=== PATIENT | female | born 1985 | race Caucasian/White ===

== ENCOUNTER 2019-03-21 22:46 | Emergency (ER) | payer MEDICAID, OTHER ==
[2019-03-21] MEDS ORDERED: Pantoprazole 40 MG Tab.CR PO ONE (22:47)
[2019-03-21] MEDS ORDERED: Ondansetron 4 MG Tab.DIS PO ONE (22:47)
[2019-03-21] MEDS ORDERED: Sodium Chloride 0.9% 1,000 ML IV ONE (23:03)
[2019-03-21] MEDS ORDERED: Thiamine 100 MG in Sodium Chloride 0.9% 100 ML IV ONE (23:04)
[2019-03-21] MEDS ORDERED: Ondansetron 8 MG in Sodium Chloride 0.9% 50 ML IV ONE (23:05)
[2019-03-21] MEDS ORDERED: Ondansetron 4 MG/2 ML SDV IVPUSH ONE (23:09)
--- NOTE | 2019-03-21 23:26 | EDM.PDOC ---
ED HPI GENERAL MEDICAL PROBLEM - General Chief Complaint: General Stated Complaint: vomiting Time Seen by Provider: 03/21/19 22:50 Source of Information: Reports: Patient History Limitations: Reports: No Limitations - History of Present Illness INITIAL COMMENTS - FREE TEXT/NARRATIVE: in with c/o epigastric abd pain with NV, she advises that she has been drinking alcohol and has vomited multiple times. The patient advises that she has been forcefully vomiting and also with the last couple of vomiting since noticed some blood streaks. Denies any black or tarry stools denies any bloody stools. Denies any ear, nose, throat symptoms denies any chest pain or shortness of breath. Onset: Gradual Duration: Day(s): Location: Reports: Abdomen Quality: Reports: Ache (Cramping) Severity: Moderate Improves with: Reports: None Worsens with: Reports: None Associated Symptoms: Reports: Nausea/Vomiting. 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: Musculoskeletal History: Reports: None Neurological History: Reports: Migraines Psychiatric History: Reports: Anxiety, Depression, Panic Attack, PTSD, Suicide Attempt, Suicidal Ideation Endocrine/Metabolic History: Reports: None Hematologic History: Reports: None Immunologic History: Reports: None Oncologic (Cancer) History: Reports: None Dermatologic History: Reports: None - Infectious Disease History Infectious Disease History: Reports: None - Past Surgical History HEENT Surgical History: Reports: Tonsillectomy, Other (See Below) Other HEENT Surgeries/Procedures: throat abscess Cardiovascular Surgical History: Reports: None Respiratory Surgical History: Reports: None GI Surgical History: Reports: None Female Surgical History: Reports: None Neurological Surgical History: Reports: None Musculoskeletal Surgical History: Reports: None Social & Family History - Family History Family Medical History: Noncontributory - Caffeine Use Caffeine Use: Reports: Soda - Living Situation & Occupation Living situation: Reports: with Family Occupation: Employed ED ROS GENERAL - Review of Systems Review Of Systems: See Below Constitutional: Reports: No Symptoms, Decreased Appetite. Denies: Fever, Chills HEENT: Reports: No Symptoms Respiratory: Reports: No Symptoms. Denies: Shortness of Breath Cardiovascular: Reports: No Symptoms. Denies: Chest Pain GI/Abdominal: Reports: Abdominal Pain, Nausea, Vomiting. Denies: Black Stool, Bloody Stool Musculoskeletal: Reports: No Symptoms. Denies: Neck Pain, Back Pain Skin: Reports: No Symptoms. Denies: Bruising, Rash, Erythema Neurological: Reports: No Symptoms. Denies: Confusion, Dizziness, Headache Psychiatric: Reports: No Symptoms ED EXAM, GENERAL - Physical Exam Exam: See Below Exam Limited By: No Limitations General Appearance: Alert, WD/WN, No Apparent Distress Ears: Normal External Exam Nose: Normal Inspection, Normal Mucosa Throat/Mouth: Normal Inspection, Normal Lips, Normal Voice, No Airway Compromise Head: Atraumatic, Normocephalic Neck: Normal Inspection, Supple, Non-Tender, Full Range of Motion Respiratory/Chest: No Respiratory Distress, Lungs Clear, Normal Breath Sounds, Chest Non-Tender Cardiovascular: Normal Peripheral Pulses, Regular Rate, Rhythm, No Murmur Peripheral Pulses: 2+: Radial (L) GI/Abdominal: Soft, Tender (epigastric tenderness). No: Non-Tender Back Exam: Normal Inspection, Full Range of Motion Extremities: Normal Inspection, Normal Range of Motion, Non-Tender, Normal Capillary Refill Neurological: Alert, Oriented, Normal Cognition, Normal Gait, No Motor/Sensory Deficits Psychiatric: Normal Affect, Normal Mood Skin Exam: Warm, Dry, Intact, Normal Color Course - Vital Signs Text/Narrative:: The patient was evaluated in the emergency department, I suspect that the patient has an alcoholic gastritis. The patient has been given Zofran 4 mg IV push, thiamine 100 mg IV push, as well as Protonix 40 mg IV push. The patient is also been given normal saline 1 L bolus. I suspect that the blood streaks the patient was having is from broken capillaries in the back of her esophagus/ throat area secondary to the forceful vomiting. The patient's H&H is stable. The overall general chemistries are normal. Lipase is normal. The patient's blood is extremely lipemic and the LFTs are having to be diluted. I did discuss this with the patient and advised that she will need follow-up at this with her family doctor and probably be placed on cholesterol medications as well as advised her of dietary changes that would need to occur to help with this as well. Also advised the patient that she needs to stop drinking alcohol. The patient again is doing much better, she will be subsequently discharged home she will be given Zofran 4 mg every 6 hours as needed as well as she will be advised to have Protonix 40 mg once a day for 14 days. The patient again is to see her family doctor which she already has an appointment to see her family doctor along with having a colonoscopy this coming week secondary to possible irritable bowel syndrome and she should advise her physician of her visit to the emergency department and all that we have discussed tonight including possible high cholesterol as well as elevated liver function test and she agrees to do that. Last Recorded V/S: Last Vital Signs Temp 36.1 C 03/21/19 22:48 Pulse 99 03/21/19 22:48 Resp 16 03/21/19 22:48 BP 145/102 H 03/21/19 22:48 Pulse Ox 97 03/21/19 22:48 - Orders/Labs/Meds Labs: Laboratory Tests 03/21/19 03/21/19 Range/Units 23:15 23:15 WBC 3.8 L (5.0-10.0) 10^3/uL RBC 4.05 (4.00-5.50) 10^6/uL Hgb 14.8 (12.0-16.0) g/dL Hct 39.2 (37.0-47.0) % MCV 96.8 H (82.0-94.0) fL MCH 36.5 H (27.0-32.0) pg MCHC 37.8 (33.0-38.0) g/dL RDW Coeff of Danny 12.9 (11.0-15.0) % Plt Count 164 (150-400) 10^3/uL Neut % (Auto) 39.3 (35-85) % Lymph % (Auto) 36.9 (10-55) % [facility] % (Auto) 15.7 (0-16) % Eos % (Auto) 6.5 H (0-5) % Baso % (Auto) 1.6 (0-3) % Neut # (Auto) 1.50 L (1.80-7.00) 10^3/uL Lymph # (Auto) 1.41 (1.00-4.80) 10^3/uL [facility] # (Auto) 0.60 (0.00-0.80) 10^3/uL Eos # (Auto) 0.25 (0.00-0.45) 10^3/uL Baso # (Auto) 0.06 10^3/uL Sodium 138 (136-145) mEq/L Potassium 3.6 (3.5-5.0) mEq/L Chloride 102 (98-106) mEq/L Carbon Dioxide 17 L (21-32) mmol/L BUN 10 (7-18) mg/dL Creatinine 0.7 (0.6-1.0) mg/dL Est Cr Clr Drug Dosing 92.10 mL/min Estimated GFR (MDRD) > 60 (>=60) mL/min Glucose 145 H (75-99) mg/dL Calcium 7.1 L (8.4-10.1) mg/dL Total Bilirubin 0.9 (0.0-1.0) mg/dL AST 392 H* (15-37) U/L ALT 152 H (12-78) U/L Alkaline Phosphatase 108 (46-116) U/L Total Protein 5.7 L (6.4-8.2) g/dL Albumin 3.2 L (3.4-5.0) g/dL Lipase 275 (73-393) U/L Ethyl Alcohol 222 H (0-3) mg/dL Meds: Medications Discontinued Medications Generic Name Dose Route Start Last Admin Trade Name Freq PRN Reason Stop Dose Admin Acetaminophen 650 mg 03/22/19 00:07 03/22/19 00:13 Tylenol PO 03/22/19 00:08 650 mg NOW ONE Administration Ondansetron HCl 8 mg/ Sodium 54 mls @ 100 mls/hr 03/21/19 23:05 Chloride IV 03/21/19 23:37 ONETIME ONE Sodium Chloride 1,000 mls @ 999 mls/hr 03/21/19 23:03 03/21/19 23:14 Normal Saline IV 03/22/19 00:03 999 mls/hr .BOLUS ONE Administration Thiamine HCl 100 mg/ Sodium 101 mls @ 202 mls/hr 03/21/19 23:04 03/21/19 23: 19 Chloride IV 03/21/19 23:05 202 mls/hr ONETIME ONE Administration Ondansetron HCl 4 mg 03/21/19 23:09 03/21/19 23:12 Zofran IVPUSH 03/21/19 23:10 4 mg ONETIME ONE Administration Ondansetron HCl 2 packet 03/22/19 00:05 Take Home: Ondansetron Odt 4 Mg, 2 Tab Pack PO 03/22/19 00:06 ONETIME ONE Pantoprazole Sodium 40 mg 03/21/19 23:30 03/21/19 23:40 Protonix Iv IVPUSH 03/21/19 23:31 40 mg ONETIME ONE Administration Pantoprazole Sodium 2 packet 03/22/19 00:06 Take Home: Pantoprazole 40 Mg, 1 Tab Pack PO 03/22/19 00:07 ONETIME ONE Departure - Departure Time of Disposition: 00:20 Disposition: Home, Self-Care 01 Condition: Good Clinical Impression: Elevated LFTs Alcoholic gastritis Qualifiers: Chronicity: unspecified - Discharge Information *PRESCRIPTION DRUG MONITORING PROGRAM REVIEWED*: Not Applicable *COPY OF PRESCRIPTION DRUG MONITORING REPORT IN PATIENT DIVYA: Not Applicable Prescriptions: Pantoprazole Sodium [Protonix] 40 mg PO DAILY 14 Days #14 tablet.dr Instructions: Gastritis, Adult, [id number] Forms: ED Department Discharge Additional Instructions: Stop drinking alcohol Protonix 40 mg once a day No spicy or greasy foods Eat a bland diet until feeling better, no milk or milk products until well Follow-up with your family doctor for further evaluation and treatment including evaluation of your cholesterol and elevated liver function test as discussed in the emergency department Return to emergency department sooner if worse or any problems - Problem List & Annotations (1) Alcoholic gastritis SNOMED Code(s): 5930288 Code(s): K29.20 - ALCOHOLIC GASTRITIS WITHOUT BLEEDING Status: Acute Priority: Medium Qualifiers: Chronicity: unspecified (2) Elevated LFTs SNOMED Code(s): 101135313, 701770295 Code(s): R94.5 - ABNORMAL RESULTS OF LIVER FUNCTION STUDIES Status: Acute Priority: Medium - Problem List Review Problem List Initiated/Reviewed/Updated: Yes - Assessment/Plan Plan: As above
[2019-03-21] MEDS ORDERED: Pantoprazole 40 MG Vial IVPUSH ONE (23:30)
[2019-03-21 23:31] LABS: CHLORIDE,CL 102 mEq/L (98-106); SODIUM,NA 138 mEq/L (136-145)
[2019-03-22] MEDS ORDERED: Take Home: Ondansetron 4 MG Tab.DIS, 2 Tab Pack PO ONE (00:05)
[2019-03-22] MEDS ORDERED: Take Home: Pantoprazole 40 MG Tab.CR, 1 Tab Pack PO ONE (00:06)
[2019-03-22] MEDS ORDERED: Acetaminophen 325 MG Tab PO ONE (00:07)
== END 2019-03-22 00:54 | disposition home or self-care (01) ==
LOC: CC.ED 22:46
DX: K29.20 Alcoholic gastritis without bleeding (principal); R79.89 Other specified abnormal findings of blood chemistry; J45.909 Unspecified asthma, uncomplicated; F41.9 Anxiety disorder, unspecified; F32.9 Major depressive disorder, single episode, unspecified; Z79.899 Other long term (current) drug therapy; Z91.012 Allergy to eggs
CPT/HCPCS: 36415; 80053; 83690; 85025; 96365; 96375; 99284-25; A9270-GY; C9113; G0480; J2405; J3411; J7030; J7050

== ENCOUNTER 2019-10-26 04:02 | Emergency (ER) | payer MEDICAID ==
--- NOTE | 2019-10-26 04:38 | EDM.PDOC ---
ED HPI GENERAL MEDICAL PROBLEM - General Chief Complaint: Gastrointestinal Problem Stated Complaint: "Bleeding from rectum" Time Seen by Provider: 10/26/19 04:15 Source of Information: Reports: Patient History Limitations: Reports: No Limitations - History of Present Illness INITIAL COMMENTS - FREE TEXT/NARRATIVE: Patient to the emergency department where she advises that she woke up this morning to have a normal bowel movement and when she wiped she noticed bright red blood. The patient complains of rectal pain. The patient denies any abdominal pain she has no nausea no vomiting she has had no fever chills, denies any other symptoms. Onset: Today, Sudden Duration: Minutes: Location: Reports: Other (Rectal pain) Quality: Reports: Pressure Severity: Mild Improves with: Reports: None Worsens with: Reports: None Associated Symptoms: Reports: No Other Symptoms. 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) (none) - Related Data Allergies Allergy/AdvReac Type Severity Reaction Status Date / Time eggs Allergy Airway Uncoded 10/26/19 04:18 Tightness Home Meds: Home Meds Escitalopram Oxalate [Lexapro] 20 mg PO DAILY 12/17/18 [History] hydrOXYzine HCL [Hydroxyzine HCl] 25 mg PO DAILY PRN 12/17/18 [History] Acetaminophen [Tylenol Extra Strength] 1,000 mg PO Q6HR PRN 03/21/19 [History] Brexpiprazole [Rexulti] 1 mg PO BEDTIME 03/27/19 [History] Lisinopril/Hydrochlorothiazide [Lisinopril-HCTZ 10-12.5 MG] 10 - 12.5 mg PO DAILY 04/12/19 [History] Hydrocortisone Acetate [Anusol-Hc] 25 mg RC Q12HR 2 Days #1 box 10/26/19 [Rx] Past Medical History HEENT History: Reports: None Cardiovascular History: Reports: Hypertension Respiratory History: Reports: Asthma Gastrointestinal History: Reports: None Other Gastrointestinal History: LACTOSE INTOLERANCE -denied 04/12/19 Genitourinary History: Reports: None 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 HX OF MASTITIS. HX OF VAGINITIS - Infectious Disease History Infectious Disease History: Reports: C-Difficile - Past Surgical History HEENT Surgical History: Reports: Tonsillectomy, Other (See Below) Other HEENT Surgeries/Procedures: throat abscess Cardiovascular Surgical History: Reports: None Respiratory Surgical History: Reports: None Female Surgical History: Reports: None Neurological Surgical History: Reports: None Social & Family History - Family History Family Medical History: Noncontributory - Tobacco Use Smoking Status *Q: Never Smoker Second Hand Smoke Exposure: No - Caffeine Use Caffeine Use: Reports: Coffee, Soda Caffeine Use Comment: weekly - Recreational Drug Use Recreational Drug Use: No - Living Situation & Occupation Living situation: Reports: with Family Occupation: Employed ED ROS GENERAL - Review of Systems Review Of Systems: See Below Constitutional: Reports: No Symptoms. Denies: Fever HEENT: Reports: No Symptoms Respiratory: Reports: No Symptoms Cardiovascular: Reports: No Symptoms Endocrine: Reports: No Symptoms GI/Abdominal: Reports: Other (Bright red blood with rectal pain). Denies: Abdominal Pain, Nausea, Vomiting : Reports: No Symptoms Musculoskeletal: Reports: No Symptoms. Denies: Back Pain Skin: Reports: No Symptoms Neurological: Reports: No Symptoms Psychiatric: Reports: No Symptoms ED EXAM, GI/ABD - Physical Exam Exam: See Below Exam Limited By: No Limitations General Appearance: Alert, WD/WN, No Apparent Distress Respiratory/Chest: No Respiratory Distress, Lungs Clear, Normal Breath Sounds, Chest Non-Tender Cardiovascular: Normal Peripheral Pulses, Regular Rate, Rhythm, No Murmur GI/Abdominal Exam: Normal Bowel Sounds, Soft, Non-Tender, No Distention Rectal (Female) Exam: Hemorrhoids, Tenderness Back Exam: Normal Inspection, Full Range of Motion Extremities: Normal Inspection, Normal Range of Motion, Non-Tender, Normal Capi llary Refill Neurological: Alert, Oriented, Normal Cognition, Normal Gait, No Motor/Sensory Deficits Psychiatric: Normal Affect, Normal Mood Skin Exam: Warm, Dry, Intact, Normal Color Course - Vital Signs Text/Narrative:: The patient was evaluated in 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 The area was tender with palpation. The patient was given a Anusol rectal suppository here in the emergency department and a prescription for Anusol HC 1 twice daily for 2 days and then as needed was given. The patient is to follow-up the family doctor and return emergency department sooner if worse or any problems - Orders/Labs/Meds Orders: Active Orders 24 hr Category Date Time Status Hydrocortisone Acetate [Anucort-HC] Med 10/26/19 04:33 Once 25 mg RECTAL ONETIME ONE Medication Orders Hydrocortisone Acetate (Anucort-Hc) 25 mg RECTAL ONETIME ONE Stop: 10/26/19 04:34 Meds: Medications Generic Name Dose Route Start Last Admin Trade Name Freq PRN Reason Stop Dose Admin Hydrocortisone Acetate 25 mg 10/26/19 04:33 Anucort-Hc RECTAL 10/26/19 04:34 ONETIME ONE Departure - Departure Time of Disposition: 04:38 Disposition: Home, Self-Care 01 Condition: Good Clinical Impression: Hemorrhoids - Discharge Information *PRESCRIPTION DRUG MONITORING PROGRAM REVIEWED*: Not Applicable *COPY OF PRESCRIPTION DRUG MONITORING REPORT IN PATIENT DIVYA: Not Applicable Prescriptions: Hydrocortisone Acetate [Anusol-Hc] 25 mg RC Q12HR 2 Days #1 box Instructions: Hemorrhoids, [id number] Additional Instructions: Anusol HC suppositories every 12 hours for 2 days and then as needed Follow-up with your family doctor Return to the emergency department sooner if worse or any problems Stool softener 2 times a day for any constipation - Problem List & Annotations (1) Hemorrhoids SNOMED Code(s): 29457961 Code(s): K64.9 - UNSPECIFIED HEMORRHOIDS Status: Acute Priority: Low Qualifiers: Hemorrhoid type: unspecified Qualified Code(s): K64.9 - Unspecified hemorrhoids - Problem List Review Problem List Initiated/Reviewed/Updated: Yes - My Orders Last 24 Hours: My Active Orders 10/26/19 04:33 Hydrocortisone Acetate [Anucort-HC] 25 mg RECTAL ONETIME ONE - Assessment/Plan Last 24 Hours: My Active Orders 10/26/19 04:33 Hydrocortisone Acetate [Anucort-HC] 25 mg RECTAL ONETIME ONE Plan: The patient's past medical history, surgical history, social history, and family medical history was reviewed see the nursing notes for details
[2019-10-26] MEDS: Hydrocortisone Acetate 25 MG Supp RECTAL ONE (04:40)
== END 2019-10-26 04:45 | disposition home or self-care (01) ==
LOC: CC.ED 04:02
DX: K64.8 Other hemorrhoids (principal); I10 Essential (primary) hypertension; F31.9 Bipolar disorder, unspecified; F41.0 Panic disorder [episodic paroxysmal anxiety]; Z91.012 Allergy to eggs; Z79.899 Other long term (current) drug therapy
CPT/HCPCS: 99283; A9270-GY

== ENCOUNTER 2019-10-30 03:02 | Emergency (ER) | payer MEDICAID ==
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
[2019-10-30] MEDS ORDERED: Potassium Chloride 10 MEQ Tab.ER PO ONE (04:12)
== END 2019-10-30 04:38 | disposition home or self-care (01) ==
LOC: CC.ED 03:02
DX: R44.0 Auditory hallucinations (principal); R44.1 Visual hallucinations; F10.129 Alcohol abuse with intoxication, unspecified; F41.0 Panic disorder [episodic paroxysmal anxiety]; I10 Essential (primary) hypertension; F31.9 Bipolar disorder, unspecified; F43.10 Post-traumatic stress disorder, unspecified; Z91.012 Allergy to eggs; Z79.899 Other long term (current) drug therapy; Y90.7 Blood alcohol level of 200-239 mg/100 ml
CPT/HCPCS: 36415; 80048; 80305; 80307; 81001; 85025; 87086; 87088; 87186; 99284; A9270

== ENCOUNTER 2020-06-15 23:10 | Emergency (ER) | payer MEDICAID ==
[2020-06-15] MEDS ORDERED: EPINEPHrine 1:10,000 1 MG/10 ML Syringe IVPUSH ONE (23:13)
[2020-06-15] MEDS ORDERED: Sodium Bicarbonate 8.4% 50 MEQ/50 ML Syringe IVPUSH ONE (23:18)
--- NOTE | 2020-06-16 00:07 | EDM.PDOC ---
ED HPI GENERAL MEDICAL PROBLEM - General Chief Complaint: CPR in Progress Stated Complaint: CPR in Progress Time Seen by Provider: 06/15/20 23:10 Source of Information: Reports: Patient, EMS - History of Present Illness INITIAL COMMENTS - FREE TEXT/NARRATIVE: Brought into ER per [facility]. Ambulance was called by her boyfriend who states that they were hanging out beside each other and she gasped and quit breathing and he couldn't get her to wake up. He said that he picked her up from work about 2100 and they went home and had a drink. He denies any drug use. When ambulance arrived they started CPR, attached umang device, inserted nav tube. Narcan x 4 was given without any response. Blood sugar on scene was 203. EPI was given x 3 without any response. They were able to shock 3 times and then no shocked advised on the 4th time. In review of the strips she was in Vfib the first 3 shocks and then NSR without a pulse and no shock was advised. CPR was continued enroute. Paula roldan was notified for assistance prior to her arrival. When she arrived here her pupils were fixed and dilated without any response. she was being bagged with good air exchange noted on bagging and no resistance with bagging. No spontaneous respirations noted. Rhythm was PEA. Pulse was noted with CPR but no pulse when CPR stopped for pulse check. She had been incontinent. Please see ambulance note also. Please see times for meds given here per Latisha notes. Time of was 2327 - Related Data Allergies Allergy/AdvReac Type Severity Reaction Status Date / Time eggs Allergy Airway Uncoded 06/15/20 23:46 Tightness Home Meds: Home Meds . [Unable to Verify Home Med List] 06/15/20 [History] Past Medical History HEENT History: Reports: None Other HEENT History: postnasal drip Cardiovascular History: Reports: Hypertension Respiratory History: Reports: Asthma Gastrointestinal History: Reports: None Other Gastrointestinal History: LACTOSE INTOLERANCE -denied 04/12/19 Genitourinary History: Reports: None [employer] History: Reports: Musculoskeletal History: Reports: None Neurological History: Reports: Migraines Psychiatric History: Reports: Anxiety, Bipolar, Depression, Panic Attack, PTSD, Suicide Attempt, Suicidal Ideation, Other (See Below) Other Psychiatric History: PARANOID PERSONALITY DISORDER, Endocrine/Metabolic History: Reports: None Hematologic History: Reports: None Immunologic History: Reports: None Oncologic (Cancer) History: Reports: None Dermatologic History: Reports: None Other Dermatologic History: HX OF CYSTITIS. HX OF MASTITIS. HX OF VAGINITIS - Infectious Disease History Infectious Disease History: Reports: C-Difficile - Past Surgical History HEENT Surgical History: Reports: Tonsillectomy, Other (See Below) Other HEENT Surgeries/Procedures: throat abscess Cardiovascular Surgical History: Reports: None Respiratory Surgical History: Reports: None GI Surgical History: Reports: None Female Surgical History: Reports: None Neurological Surgical History: Reports: None Musculoskeletal Surgical History: Reports: None Dermatological Surgical History: Reports: None Social & Family History - Family History Family Medical History: No Pertinent Family History - Caffeine Use Caffeine Use: Reports: Energy Drinks Caffeine Use Comment: weekly - Living Situation & Occupation Living situation: Reports: Other (In assisted as of 11/25/19) ED ROS GENERAL - Review of Systems Review Of Systems: Unable To Obtain Reason Not Obtained: pt in cardiac arrest ED EXAM, CPR - Physical Exam Exam: Not Obtained Course - Orders/Labs/Meds Meds: Medications Discontinued Medications Generic Name Dose Route Start Last Admin Trade Name Freq PRN Reason Stop Dose Admin Epinephrine HCl 1 mg 06/15/20 23:13 06/15/20 23:13 Epinephrine 1:10,000 IVPUSH 06/15/20 23:14 1 mg ONETIME ONE Administration Sodium Bicarbonate 50 meq 06/15/20 23:18 06/15/20 23:18 Sodium Bicarbonate 8.4% IVPUSH 06/15/20 23:19 50 meq ONETIME ONE Administration - Re-Assessments/Exams Free Text/Narrative Re-Assessment/Exam: 06/16/20 00:45 Tie of was declared at 2328. No pulse and rhythm was asystole. CPR was done for greater than an hour without any response. 2339 Dr Rajan Wen, councillor [employer] was notified and case reviewed and he did request autopsy. Leonor0 Florence from [facility] in [place] was called and they will come to get patient [id number] Francis the freight claim investigator for the [facility] [employer] office in [place] was notified at and case was reviewed and he did agree that autopsy was needed. [facility] will transport. Departure - Departure Time of Disposition: 00:51 Disposition: 20 Clinical Impression: Cardiac arrest - Discharge Information *PRESCRIPTION DRUG MONITORING PROGRAM REVIEWED*: Not Applicable *COPY OF PRESCRIPTION DRUG MONITORING REPORT IN PATIENT DIVYA: Not Applicable Forms: ED Department Discharge - Problem List & Annotations (1) Cardiac arrest SNOMED Code(s): 345946929 Code(s): I46.9 - CARDIAC ARREST, CAUSE UNSPECIFIED Status: Acute Priority: High - Problem List Review Problem List Initiated/Reviewed/Updated: Yes
[2020-06-16] MEDS ORDERED: Sodium Bicarbonate 8.4% 50 MEQ/50 ML Syringe IVPUSH ONE (23:18)
== END 2020-06-16 01:54 | disposition expired ==
LOC: CC.ED 23:10
DX: I46.9 Cardiac arrest, cause unspecified (principal); I10 Essential (primary) hypertension; J45.909 Unspecified asthma, uncomplicated; Z91.012 Allergy to eggs
CPT/HCPCS: 92950; 96374; 96375; 99285-25; J0171